=== PATIENT | male | born 1975 ===

== ENCOUNTER → 2017-09-01 14:54 | Outpatient (CLI) | payer OTHER | END | disposition home or self-care (01) | LOC: LAB 14:54 | DX: R05 Cough (principal); R50.9 Fever, unspecified; J09.X2 Influenza due to identified novel influenza A virus with other respiratory manifestations ==

== ENCOUNTER → 2017-09-01 | Outpatient (CLI) | payer OTHER ==
[~2017-09-01] VITALS: Ht 152.4 cm; Wt 83.9 kg
== END | disposition home or self-care (01) ==
LOC: PPHC 11:18
DX: J09.X2 Influenza due to identified novel influenza A virus with other respiratory manifestations (principal)

== ENCOUNTER 2018-11-24 13:48 | Outpatient (CLI) | payer OTHER | END 2018-11-24 13:52 | disposition home or self-care (01) | LOC: SONOGRAMA 13:48 | DX: N50.819 Testicular pain, unspecified (principal) ==

== ENCOUNTER 2021-02-01 07:25 | Outpatient (CLI) | payer OTHER | END 2021-02-01 10:26 | disposition home or self-care (01) | LOC: NUCLEAR 07:25 | PROVIDERS: ATTEND General Practice | DX: M79.605 Pain in left leg (principal); M79.604 Pain in right leg; Z83.2 Family history of diseases of the blood and blood-forming organs and certain disorders involving the immune mechanism; I87.2 Venous insufficiency (chronic) (peripheral); I73.9 Peripheral vascular disease, unspecified ==

== ENCOUNTER 2021-02-09 14:48 | Outpatient (CLI) | payer OTHER | END 2021-02-09 14:57 | disposition home or self-care (01) | LOC: SONOGRAMA 14:48 | PROVIDERS: ATTEND General Practice | DX: E06.3 Autoimmune thyroiditis (principal); E05.21 Thyrotoxicosis with toxic multinodular goiter with thyrotoxic crisis or storm ==